=== PATIENT | female | born 1990 | race Caucasian/White ===

== ENCOUNTER → 2020-04-16 | Outpatient (CLI) | payer OTHER ==
[2020-04-16 04:46] LABS: BASOPHILS % (AUTO) 0 % (0-1); EOSINOPHILS % (AUTO) 2 % (1-7); LYMPHOCYTES % (AUTO) 18 % (22-44); MEAN CORPUSCULAR HEMOGLOBIN 30.7 pg (27.0-34.8); MEAN CORPUSCULAR HGB CONC 33.6 g/dL (32.4-35.8); MEAN PLATELET VOLUME 7.9 fL (7.4-10.4); MONOCYTES % (AUTO) 6 % (2-9); NEUTROPHILS % (AUTO) 74 % (42-75); PLATELET COUNT 397 x10^3/uL (130-400); RED BLOOD COUNT 4.56 x10^6/uL (3.82-5.3); RED CELL DISTRIBUTION WIDTH 13.1 % (9.6-15.2)
[2020-04-16 04:52] LABS: MD NO
== END | disposition home or self-care (01) ==
LOC: LAB 03:35
PROVIDERS: ATTEND Obstetrics & Gynecology
DX: Z34.80 Encounter for supervision of other normal pregnancy, unspecified trimester (principal); Z3A.00 Weeks of gestation of pregnancy not specified
CPT/HCPCS: 36415; 85025; 86592; 86762; 86787; 86850; 86900; 87086; 87340; 87806; G0475

== ENCOUNTER → 2020-08-20 | Outpatient (CLI) | payer OTHER ==
[2020-08-20 10:33] LABS: BASOPHILS % (AUTO) 0 % (0-1); EOSINOPHILS % (AUTO) 1 % (1-7); LYMPHOCYTES % (AUTO) 9 % (22-44); MEAN CORPUSCULAR HEMOGLOBIN 30.1 pg (27.0-34.8); MEAN CORPUSCULAR HGB CONC 33.5 g/dL (32.4-35.8); MEAN PLATELET VOLUME 8.1 fL (7.4-10.4); MONOCYTES % (AUTO) 4 % (2-9); NEUTROPHILS % (AUTO) 86 % (42-75); PLATELET COUNT 356 x10^3/uL (130-400); RED CELL DISTRIBUTION WIDTH 13.7 % (9.6-15.2)
[2020-08-20 10:34] LABS: MD NO
== END | disposition home or self-care (01) ==
LOC: LAB 08:57
PROVIDERS: ATTEND Nurse Practitioner
DX: Z34.80 Encounter for supervision of other normal pregnancy, unspecified trimester (principal); Z3A.00 Weeks of gestation of pregnancy not specified
CPT/HCPCS: 36415; 82306; 82728; 82950; 85025; 86803

== ENCOUNTER → 2020-09-15 | Outpatient (CLI) | payer OTHER | END | disposition home or self-care (01) | LOC: LAB 08:52 | PROVIDERS: ATTEND Obstetrics & Gynecology | DX: Z34.80 Encounter for supervision of other normal pregnancy, unspecified trimester (principal) | CPT/HCPCS: 36415; 82951 ==

== ENCOUNTER 2020-10-10 19:39 | Inpatient (IN) | payer OTHER ==
[~2020-10-10] VITALS: Ht 157.5 cm; Wt 115.4 kg
[2020-10-10] MEDS ORDERED: HEPARIN 5,000 UNITS/ML, 1ML ONE (21:57)
[2020-10-10] MEDS ORDERED: BETAMETHASONE 6 MG/ML, 5ML IM ONE ×2 (21:57→22:00)
[2020-10-10] MEDS ORDERED: SODIUM CITRATE/CITRIC ACID 30 ML UDC PO ONE (22:00)
[2020-10-10] MEDS ORDERED: METOCLOPRAMIDE 5 MG/ML, 2ML IV ONE (22:00)
[2020-10-10] MEDS: LACTATED RINGERS 1,000 ML IV SCH (22:15)
[2020-10-10] MEDS: HEPARIN 5,000 UNITS/ML, 1ML SQ SCH (22:15)
[2020-10-10 22:19] LABS: BASOPHILS % (AUTO) 1 % (0-1); EOSINOPHILS % (AUTO) 1 % (1-7); LYMPHOCYTES % (AUTO) 9 % (22-44); MEAN CORPUSCULAR HEMOGLOBIN 30.3 pg (27.0-34.8); MEAN CORPUSCULAR HGB CONC 33.9 g/dL (32.4-35.8); MEAN PLATELET VOLUME 8.5 fL (7.4-10.4); MONOCYTES % (AUTO) 5 % (2-9); NEUTROPHILS % (AUTO) 85 % (42-75); PLATELET COUNT 349 x10^3/uL (130-400); RED BLOOD COUNT 4.55 x10^6/uL (3.82-5.3); RED CELL DISTRIBUTION WIDTH 14.3 % (9.6-15.2)
[2020-10-10 22:20] LABS: MD NO
[2020-10-10] MEDS: AMPICILLIN 2 GM in SODIUM CHLORIDE 0.9% 100 ML IV SCH (22:20)
[2020-10-11] MEDS: AMPICILLIN 2 GM in SODIUM CHLORIDE 0.9% 100 ML IV SCH ×4 (04:04→21:41)
[2020-10-11] MEDS ORDERED: PREN1TAB60 PO (09:15)
[2020-10-11] MEDS ORDERED: ENOX40SY5 SC (09:17)
[2020-10-11] MEDS ORDERED: SERT-237 PO (09:18)
[2020-10-11] MEDS ORDERED: BUTA-193 PO (09:43)
[2020-10-11] MEDS ORDERED: OMEP20TA62 PO (09:44)
[2020-10-11] MEDS: HEPARIN 5,000 UNITS/ML, 1ML SQ SCH ×2 (09:59→21:46)
[2020-10-11] MEDS: LACTATED RINGERS 1,000 ML IV SCH (14:03)
[2020-10-11] MEDS ORDERED: PRENATAL VIT/IRON/FA 1 EACH TABLET PO SCH (21:00)
[2020-10-11] MEDS ORDERED: SODIUM CHLORIDE FLUSH 3ML SYRINGE IVF SCH (21:00)
[2020-10-11] MEDS: PRENATAL VIT/IRON/FA 1 EACH TABLET HOMEMEDPO SCH (22:00)
[2020-10-11] MEDS: SERTRALINE 50MG TABLET HOMEMEDPO SCH (22:00)
[2020-10-11] MEDS ORDERED: BETAMETHASONE 6 MG/ML, 5ML IM ONE (22:00)
[2020-10-12] MEDS: AMPICILLIN 2 GM in SODIUM CHLORIDE 0.9% 100 ML IV SCH (04:01)
[2020-10-12] MEDS ORDERED: METOCLOPRAMIDE 5 MG/ML, 2ML ONE (06:03)
[2020-10-12] MEDS ORDERED: SODIUM CITRATE/CITRIC ACID 15 ML UDC ONE (06:03)
[2020-10-12] MEDS ORDERED: OXYTOCIN 30U/ 0.9% NaCL 500ML 500 ML ONE (06:03)
[2020-10-12] MEDS ORDERED: ONDANSETRON 2MG/ML, 2ML ONE (07:15)
[2020-10-12] MEDS ORDERED: CEFAZOLIN 1,000 MG ONE (07:15)
[2020-10-12] MEDS ORDERED: OXYTOCIN 10 UNITS/ML, 1ML ONE (07:15)
[2020-10-12] MEDS ORDERED: HYDROmorphone 2 MG/ML, 1ML ONE (07:16)
[2020-10-12] MEDS ORDERED: FENTANYL PF 100 MCG/2ML ONE (07:16)
[2020-10-12] MEDS ORDERED: DEXAMETHASONE 4 MG/ML, 1ML ONE (07:56)
[2020-10-12] MEDS ORDERED: ACETAMINOPHEN 325 MG TABLET PO SCH (09:00)
[2020-10-12] MEDS: PRENATAL VIT/IRON/FA 1 EACH TABLET PO SCH (09:00)
[2020-10-12] MEDS ORDERED: CALCIUM CARBONATE 500 MG TAB.CHEW PO PRN (09:00)
[2020-10-12] MEDS ORDERED: MISOPROSTOL 200 MCG TABLET PR PRN (09:00)
[2020-10-12] MEDS ORDERED: morphine SULFATE 10 MG/ML, 1ML IM PRN (09:00)
[2020-10-12] MEDS: LACTATED RINGERS 1,000 ML IV SCH ×4 (09:00→19:00)
[2020-10-12] MEDS ORDERED: MORPHINE SULFATE 4 MG/ML, 1ML IVPush PRN (09:00)
[2020-10-12] MEDS ORDERED: ONDANSETRON 2MG/ML, 2ML IV PRN (09:00)
[2020-10-12] MEDS ORDERED: BISACODYL 10 MG SUPP PR PRN (09:00)
[2020-10-12] MEDS ORDERED: DIPHENHYDRAMINE 50 MG/ML, 1ML ONE (09:03)
[2020-10-12] MEDS: OXYTOCIN 30U/ 0.9% NaCL 500ML 500 ML IV SCH ×2 (09:10→19:00)
[2020-10-12] MEDS ORDERED: HYDROmorphone 1 MG/ML, 1ML INJ IM PRN (09:30)
[2020-10-12 10:50] VITALS: BP 115/72
[2020-10-12] MEDS ORDERED: ACETAMINOPHEN 500 MG TABLET ONE (11:40)
[2020-10-12] MEDS: ACETAMINOPHEN 500 MG TABLET PO SCH ×2 (12:00→17:42)
[2020-10-12] MEDS: KETOROLAC 30 MG/1 ML IV SCH ×2 (14:00→20:51)
[2020-10-12 14:01] VITALS: BP 103/62
[2020-10-12] MEDS: HYDROmorphone 1 MG/ML, 1ML INJ IV PRN ×2 (15:14→19:47)
[2020-10-12 16:22] LABS: MEAN CORPUSCULAR HEMOGLOBIN 29.8 pg (27.0-34.8); MEAN CORPUSCULAR HGB CONC 33.1 g/dL (32.4-35.8); MEAN PLATELET VOLUME 8.4 fL (7.4-10.4); PLATELET COUNT 336 x10^3/uL (130-400); RED BLOOD COUNT 3.97 x10^6/uL (3.82-5.3); RED CELL DISTRIBUTION WIDTH 14.6 % (9.6-15.2)
[2020-10-12 16:54] LABS: MD YES
[2020-10-12 16:57] LABS: BAND#(MANUAL) 0.84 x10^3/uL; BANDS%(MANUAL) 4 % (0-7); LYMPH#(MANUAL) 0.63 x10^3/uL (1-3.4); LYMPHS% (MANUAL) 3 % (22-44); METAMYELOCYTES# (MANUAL) 0.21 x10^3/uL (0-0); METAMYELOCYTES% (MANUAL) 1 % (0-1); MONOS#(MANUAL) 1.05 x10^3/uL (0.3-2.7); MONOS% (MANUAL) 5 % (2-9); MYELOCYTES# (MANUAL) 0.21 x10^3/uL (0-0); MYELOCYTES% (MANUAL) 1 % (0-0); SEG#(MANUAL) 17.97 x10^3/uL (1.8-6.8); SEGS% (MANUAL) 86 % (42-75)
[2020-10-12 16:58] LABS: <PLATELET ESTIMATE> ADEQUATE; <PLT MORPHOLOGY> NORMAL PLT MORPH; <RBC MORPHOLOGY> NORMAL
[2020-10-12] MEDS: DOCUSATE 100 MG CAPSULE PO PRN (20:51)
[2020-10-12] MEDS: ENOXAPARIN 40 MG/0.4 ML SQ SCH (20:52)
[2020-10-12 21:00] VITALS: BP 97/59
[2020-10-12] MEDS: SERTRALINE 50MG TABLET HOMEMEDPO SCH (21:00)
[2020-10-12] MEDS: PRENATAL VIT/IRON/FA 1 EACH TABLET HOMEMEDPO SCH (21:00)
[2020-10-13] MEDS: ACETAMINOPHEN 500 MG TABLET PO SCH ×4 (00:32→18:33)
[2020-10-13] MEDS: HYDROmorphone 1 MG/ML, 1ML INJ IV PRN ×5 (00:33→18:33)
[2020-10-13 00:45] VITALS: BP 127/78
[2020-10-13] MEDS: LACTATED RINGERS 1,000 ML IV SCH ×5 (01:00→16:09)
[2020-10-13] MEDS: KETOROLAC 30 MG/1 ML IV SCH ×2 (02:44→08:32)
[2020-10-13] MEDS: OXYTOCIN 30U/ 0.9% NaCL 500ML 500 ML IV SCH ×2 (05:00→15:00)
[2020-10-13 05:10] VITALS: BP 130/86
[2020-10-13 08:30] VITALS: BP 130/84
[2020-10-13] MEDS ORDERED: KETOROLAC 30 MG/1 ML ONE (08:31)
[2020-10-13] MEDS: DOCUSATE 100 MG CAPSULE PO PRN (08:33)
[2020-10-13] MEDS: SIMETHICONE 80 MG CHEW TAB PO PRN (08:39)
[2020-10-13] MEDS: PRENATAL VIT/IRON/FA 1 EACH TABLET PO SCH (09:20)
[2020-10-13] MEDS: IBUPROFEN 600 MG TABLET PO SCH ×2 (14:58→21:33)
[2020-10-13 19:30] VITALS: BP 107/72
[2020-10-13] MEDS: PRENATAL VIT/IRON/FA 1 EACH TABLET HOMEMEDPO SCH (21:00)
[2020-10-13] MEDS: SERTRALINE 50MG TABLET HOMEMEDPO SCH (21:00)
[2020-10-13] MEDS: ENOXAPARIN 40 MG/0.4 ML SQ SCH (21:34)
[2020-10-14] MEDS: OXYTOCIN 30U/ 0.9% NaCL 500ML 500 ML IV SCH ×3 (01:00→21:00)
[2020-10-14] MEDS: LACTATED RINGERS 1,000 ML IV SCH ×6 (01:00→21:00)
[2020-10-14] MEDS: HYDROmorphone 1 MG/ML, 1ML INJ IV PRN ×7 (01:02→23:38)
[2020-10-14] MEDS: SIMETHICONE 80 MG CHEW TAB PO PRN ×3 (01:02→14:00)
[2020-10-14] MEDS: ACETAMINOPHEN 500 MG TABLET PO SCH ×4 (01:02→19:31)
[2020-10-14] MEDS: IBUPROFEN 600 MG TABLET PO SCH ×4 (03:33→23:37)
[2020-10-14 07:00] VITALS: BP 116/78
[2020-10-14] MEDS: DOCUSATE 100 MG CAPSULE PO PRN ×2 (07:16→19:31)
[2020-10-14] MEDS: PRENATAL VIT/IRON/FA 1 EACH TABLET PO SCH (09:00)
[2020-10-14 20:40] VITALS: BP 126/84
[2020-10-14] MEDS: SERTRALINE 50MG TABLET HOMEMEDPO SCH ×2 (21:00→21:04)
[2020-10-14] MEDS: ENOXAPARIN 40 MG/0.4 ML SQ SCH (21:05)
[2020-10-14] MEDS: PRENATAL VIT/IRON/FA 1 EACH TABLET HOMEMEDPO SCH (21:17)
[2020-10-15] MEDS: LACTATED RINGERS 1,000 ML IV SCH ×5 (01:00→17:00)
[2020-10-15] MEDS: ACETAMINOPHEN 500 MG TABLET PO SCH ×4 (01:44→21:18)
[2020-10-15] MEDS: HYDROmorphone 1 MG/ML, 1ML INJ IV PRN ×5 (03:52→21:29)
[2020-10-15] MEDS: IBUPROFEN 600 MG TABLET PO SCH ×4 (05:44→23:52)
[2020-10-15] MEDS: OXYTOCIN 30U/ 0.9% NaCL 500ML 500 ML IV SCH ×2 (07:00→17:00)
[2020-10-15 07:20] VITALS: BP 118/78
[2020-10-15] MEDS ORDERED: HYDROmorphone 2MG TABLET PO PRN (07:30)
[2020-10-15] MEDS: PRENATAL VIT/IRON/FA 1 EACH TABLET PO SCH (07:57)
[2020-10-15] MEDS: DOCUSATE 100 MG CAPSULE PO PRN ×2 (08:01→21:29)
[2020-10-15] MEDS: SIMETHICONE 80 MG CHEW TAB PO PRN ×2 (17:01→23:52)
[2020-10-15 19:57] VITALS: BP 130/83
[2020-10-15] MEDS: SERTRALINE 50MG TABLET HOMEMEDPO SCH (21:00)
[2020-10-15] MEDS: ENOXAPARIN 40 MG/0.4 ML SQ SCH (21:00)
[2020-10-15] MEDS: PRENATAL VIT/IRON/FA 1 EACH TABLET HOMEMEDPO SCH (21:19)
[2020-10-16] MEDS: LACTATED RINGERS 1,000 ML IV SCH ×4 (01:00→06:23)
[2020-10-16] MEDS: HYDROmorphone 1 MG/ML, 1ML INJ IV PRN ×3 (01:47→10:06)
[2020-10-16] MEDS: ACETAMINOPHEN 500 MG TABLET PO SCH ×3 (02:56→15:14)
[2020-10-16] MEDS: OXYTOCIN 30U/ 0.9% NaCL 500ML 500 ML IV SCH ×2 (03:00→13:00)
[2020-10-16 05:40] LABS: CREATININE 0.62 mg/dL (0.55-1.02)
[2020-10-16] MEDS: IBUPROFEN 600 MG TABLET PO SCH ×2 (05:49→13:11)
[2020-10-16] MEDS ORDERED: HYDR2TAB40 PO (08:12)
[2020-10-16] MEDS ORDERED: HYDROmorphone 2MG TABLET PO PRN (08:30)
[2020-10-16 08:43] VITALS: BP 123/84
[2020-10-16] MEDS: SIMETHICONE 80 MG CHEW TAB PO PRN (08:46)
[2020-10-16] MEDS: DOCUSATE 100 MG CAPSULE PO PRN (08:46)
[2020-10-16] MEDS: PRENATAL VIT/IRON/FA 1 EACH TABLET PO SCH (08:47)
[2020-10-16] MEDS ORDERED: DIPH,PERTUSS(ACELL),TET VAC/PF NC IM-VACC ONE (15:38)
[2020-10-16] MEDS ORDERED: ENOXAPARIN 30 MG/0.3 ML SQ SCH (21:00)
== END 2020-10-16 17:00 | disposition home or self-care (01) | DRG 806 ==
LOC: LDOP 19:39 → LDIP 20:48 → 2NW 10-12 10:36
PROVIDERS: ADMIT Obstetrics & Gynecology; ATTEND Obstetrics & Gynecology
PROC: 10E0XZZ Delivery of Products of Conception, External Approach (ICD-10-PCS; principal; 2020-10-16)
DX: O34.219 Maternal care for unspecified type scar from previous cesarean delivery (principal); D62 Acute posthemorrhagic anemia; Z37.0 Single live birth; Z20.822 Contact with and (suspected) exposure to COVID-19; K66.0 Peritoneal adhesions (postprocedural) (postinfection); O42.113 Preterm premature rupture of membranes, onset of labor more than 24 hours following rupture, third trimester; O76 Abnormality in fetal heart rate and rhythm complicating labor and delivery; O99.02 Anemia complicating childbirth; O99.214 Obesity complicating childbirth; O99.52 Diseases of the respiratory system complicating childbirth; O99.824 Streptococcus B carrier state complicating childbirth; F32.9 Major depressive disorder, single episode, unspecified; F41.9 Anxiety disorder, unspecified; G43.909 Migraine, unspecified, not intractable, without status migrainosus; E66.9 Obesity, unspecified; J45.909 Unspecified asthma, uncomplicated; O24.420 Gestational diabetes mellitus in childbirth, diet controlled; Z3A.34 34 weeks gestation of pregnancy; Z82.3 Family history of stroke; Z82.49 Family history of ischemic heart disease and other diseases of the circulatory system; Z86.711 Personal history of pulmonary embolism; Z86.718 Personal history of other venous thrombosis and embolism; Z91.018 Allergy to other foods; Z88.8 Allergy status to other drugs, medicaments and biological substances; Z88.5 Allergy status to narcotic agent; Z88.9 Allergy status to unspecified drugs, medicaments and biological substances
CPT/HCPCS: 36415; 76815; 76819; 82565; 84112; 85025; 86592; 86850; 86900; 87635; G0378; J0290; J0690; J0702; J1100; J1170; J1644; J1650; J1885; J2405; J3010; J2590; J2765; J7120

== ENCOUNTER → 2020-12-07 | Outpatient (CLI) | payer OTHER ==
[~2020-12-07] MED LIST: BUTA-193 PO; ENOX40SY5 SC; HYDR2TAB40 PO; OMEP20TA62 PO; PREN1TAB60 PO; SERT-237 PO
== END | disposition home or self-care (01) ==
LOC: LAB 08:46
PROVIDERS: ATTEND Obstetrics & Gynecology
DX: Z86.32 Personal history of gestational diabetes (principal)
CPT/HCPCS: 36415; 82947; 82950